=== PATIENT | male | born 2000 | race Caucasian/White ===

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

== ENCOUNTER 2023-12-08 16:29 | Emergency (ER) | payer SELFPAY ==
[~2023-12-08] VITALS: Ht 180.3 cm; Wt 90.9 kg
[~2023-12-08 16:29] MED LIST changes: +BACTRIM DS 8001 TAB PO
[2023-12-08 16:32] VITALS: TEMP 99
[2023-12-08 17:55] VITALS: BP 142/70; PULSE 99
== END 2023-12-08 17:55 | disposition home or self-care (01) ==
LOC: COL.ER 16:29
DX: S61.011A Laceration without foreign body of right thumb without damage to nail, initial encounter (principal); F17.290 Nicotine dependence, other tobacco product, uncomplicated; Z23 Encounter for immunization; W25.XXXA Contact with sharp glass, initial encounter

== ENCOUNTER 2023-12-09 06:53 | Emergency (ER) | payer SELFPAY ==
[~2023-12-09] VITALS: Ht 180.3 cm; Wt 81.8 kg
[2023-12-09 08:08] VITALS: BP 133/74; PULSE 77; TEMP 98.6
== END 2023-12-09 08:08 ==
LOC: COL.ER 06:53
DX: T81.33XA Disruption of traumatic injury wound repair, initial encounter (principal); R45.851 Suicidal ideations; Y04.0XXA Assault by unarmed brawl or fight, initial encounter